=== PATIENT | male | born 1945 | race Hispanic/Latino ===

== ENCOUNTER 2023-08-04 05:58 | Day surgery (SDC) | payer MEDICARE ==
[2023-07-30 10:06] VITALS: BP 143/81; PULSE 67; RESP 16
[2023-07-30 10:25] LABS: BASOPHILS # (AUTO) 0.07 K/uL (0.00-0.20); BASOPHILS % (AUTO) 0.9 % (0.0-5.0); EOSINOPHILS % (AUTO) 1.3 % (0.0-8.0); HEMATOCRIT 46.5 % (42-54); IMMATURE GRANULOCYTE ABSOLUTE 0.03 K/uL (0-1); LYMPHOCYTES # (AUTO) 1.9 K/uL (1.0-4.8); LYMPHOCYTES % (AUTO) 25.6 % (21.0-51.0); MEAN CORPUSCULAR HEMOGLOBIN 31.8 pg (27.0-33.0); MEAN CORPUSCULAR HGB CONC 33.1 g/dL (32.0-36.0); MEAN CORPUSCULAR VOLUME 95.9 fL (79-99); MONOCYTES # (AUTO) 0.6 K/uL (0.1-1.0); MONOCYTES % (AUTO) 7.5 % (3.0-13.0); NEUTROPHILS # (AUTO) 4.9 K/uL (1.8-7.7); NEUTROPHILS % (AUTO) 64.3 % (40.0-77.0); PLATELET COUNT (AUTO) 275 K/uL (130-400); RED BLOOD CELL COUNT(AUTO) 4.85 MIL/uL (4.50-6.20); RED CELL DISTRIBUTION WIDTH 12.8 % (11.0-15.5); WHITE BLOOD COUNT (AUTO) 7.6 K/uL (4.8-10.8)
[2023-07-30 10:42] LABS: CREATININE 1.8 mg/dL (0.5-1.5)
[2023-07-30 10:45] LABS: INR < 0.93 (0.85-1.15); PROTHROMBIN TIME 9.9 SEC (9.6-11.6)
[2023-07-30 10:46] LABS: PARTIAL THROMBOPLASTIN TIME 26.3 SEC (26.3-35.5)
[~2023-08-04] VITALS: Ht 182.9 cm; Wt 94.3 kg
[2023-08-04] VITALS (16 sets, daily range): BP systolic 121–149; BP diastolic 53–84; PULSE 44–94; RESP 12–18
[2023-08-04] MEDS ORDERED: LACTATED RINGERS 1000ML 1,000 ML IV ONE (06:24)
[2023-08-04] MEDS ORDERED: CEFAZOLIN SODIUM 2 GM VIAL ONE (06:24)
[2023-08-04] MEDS ORDERED: LIDOCAINE PF 100MG/5ML (2%) SYRINGE 5ML ONE (07:05)
[2023-08-04] MEDS ORDERED: DEXAMETHASONE SOD PHOSPHATE 10MG/ML 1ML VIAL ONE (07:05)
[2023-08-04] MEDS ORDERED: NEOSTIGMINE 5MG/5ML SYR IV ONE (07:06)
[2023-08-04] MEDS ORDERED: PROPOFOL 10 MG/ML 20ML VIAL IV ONE (07:06)
[2023-08-04] MEDS ORDERED: MIDAZOLAM HCL 1 MG/ML 2ML VIAL ONE (07:06)
[2023-08-04] MEDS ORDERED: GLYCOPYRROLATE 1 MG/5 ML SYRINGE ONE (07:06)
[2023-08-04] MEDS ORDERED: ONDANSETRON 4MG INJ ONE (07:06)
[2023-08-04] MEDS ORDERED: FENTANYL CITRATE PF 50 MCG/1 ML 2ML VIAL ONE (07:07)
[2023-08-04] MEDS ORDERED: ROPIVACAINE 0.5% 5MG/ML 30ML IJ ONE (07:07)
[2023-08-04] MEDS ORDERED: ROCURONIUM 10MG/1ML SYR 10 MG/ML ML ONE ×2 (07:07→07:51)
[2023-08-04] MEDS ORDERED: PHENYLEPHRINE HCL 10 MG/ML 1ML VIAL IV ONE (07:36)
[2023-08-04] MEDS ORDERED: CEFAZOLIN SODIUM 2 GM VIAL IVPB ONE (07:40)
[2023-08-04] MEDS ORDERED: TRAM50TA4 PO (08:26)
[2023-08-04] MEDS ORDERED: METH-662 PO (08:26)
[2023-08-04] MEDS ORDERED: GABA-529 PO (08:26)
[2023-08-04] MEDS ORDERED: DOCU-116 PO (08:26)
== END 2023-08-04 11:15 | disposition home or self-care (01) ==
LOC: DAH 05:58
PROVIDERS: ATTEND Surgery
DX: K40.90 Unilateral inguinal hernia, without obstruction or gangrene, not specified as recurrent (principal); Z90.49 Acquired absence of other specified parts of digestive tract; Z79.01 Long term (current) use of anticoagulants; Z79.899 Other long term (current) drug therapy
CPT/HCPCS: 80048; 85025; 85610; 85730; 36415; 49650; 64488; A6260; A4663; J7030; J7120 ×2; J3010; J3490; J1100; J2710; J2001; J2250; J2704; J2405; J2795; J2371; J0690 ×2; A4649 ×4; C1781; A4215; A4223; A4222; A4221; A4600